=== PATIENT | female | born 1990 | race Caucasian/White ===

== ENCOUNTER → 2024-11-23 | Outpatient (CLI) | payer SELFPAY ==
--- NOTE | 2024-11-23 07:54 | CT_ITS ---
EXAM: CT NECK WITH INTRAVENOUS CONTRAST CLINICAL INDICATION: Localized enlarged lymph nodes TECHNIQUE: Helically acquired images were obtained of the neck with intravenous contrast. This CT exam was performed using one or more of the following dose reduction techniques: automated exposure control, adjustment of the mA and/or kV according to patient size, and/or use of iterative reconstruction technique. CONTRAST: IV 75mL [id number] COMPARISON: No relevant prior studies available. FINDINGS: NASOPHARYNX: Unremarkable. SUPRAHYOID NECK: Unremarkable. Oropharynx, oral cavity, parapharyngeal space and retropharyngeal space are unremarkable. INFRAHYOID NECK: Unremarkable. The larynx, hypopharynx and supraglottis are unremarkable. SUBMANDIBULAR/PAROTID GLANDS: Unremarkable. Glands are normal in size. THYROID: Unremarkable. No enlarged or calcified nodules. BONES/JOINTS: No acute fracture. SOFT TISSUES: Unremarkable. VASCULATURE: No acute findings. LYMPH NODES: Unremarkable. No lymphadenopathy. LUNG APICES: Unremarkable as visualized. CT/Soft Tissue Neck WITH Contrast IMPRESSION: Normal neck CT. Electronically Signed: Tray Franco MD at 16:45 EST ,
== END | disposition home or self-care (01) ==
PROVIDERS: PCP Nurse Practitioner Family; Referring Provider Nurse Practitioner Family; Visit Provider Nurse Practitioner Family
DX: R59.0 Localized enlarged lymph nodes (principal)
CPT/HCPCS: 70491; Q9967